=== PATIENT | male | born 1935 | race Caucasian/White ===

== ENCOUNTER → 2016-10-25 | Outpatient (CLI) | payer OTHER | LOC: BMCIMAGING 12:16 | PROVIDERS: ATTEND Family Medicine | DX: M51.36 Other intervertebral disc degeneration, lumbar region (principal); M51.37 Other intervertebral disc degeneration, lumbosacral region; M54.5 Low back pain; M12.9 Arthropathy, unspecified ==

== ENCOUNTER → 2016-11-04 | Outpatient (CLI) | payer OTHER | LOC: FIMAGING 12:30 | PROVIDERS: ATTEND Physician Assistant | DX: M48.56XA Collapsed vertebra, not elsewhere classified, lumbar region, initial encounter for fracture (principal); M48.06 Spinal stenosis, lumbar region; M48.07 Spinal stenosis, lumbosacral region; M43.16 Spondylolisthesis, lumbar region; M12.9 Arthropathy, unspecified; M51.37 Other intervertebral disc degeneration, lumbosacral region; M51.26 Other intervertebral disc displacement, lumbar region; R93.7 Abnormal findings on diagnostic imaging of other parts of musculoskeletal system; I71.4 Abdominal aortic aneurysm, without rupture ==

== ENCOUNTER → 2016-11-15 | Outpatient (CLI) | payer OTHER ==
[~2016-11-15] MED LIST: GADOBUTROL 10 ML VIAL IVP ONE
[2016-11-15 14:35] LABS: CREATININE 1.4 mg/dL (0.7-1.3)
== END ==
LOC: FIMAGING 13:51
PROVIDERS: ATTEND Physical Medicine & Rehabilitation
DX: S32.030A Wedge compression fracture of third lumbar vertebra, initial encounter for closed fracture (principal); R60.9 Edema, unspecified; S32.040D Wedge compression fracture of fourth lumbar vertebra, subsequent encounter for fracture with routine healing; M54.5 Low back pain; M48.06 Spinal stenosis, lumbar region; M51.36 Other intervertebral disc degeneration, lumbar region; M12.9 Arthropathy, unspecified
CPT/HCPCS: 72158; A9585

== ENCOUNTER → 2016-12-14 | Outpatient (CLI) | payer OTHER, MEDICARE | LOC: BMCIMAGING 09:51 | PROVIDERS: ATTEND Physician Assistant | DX: Z13.820 Encounter for screening for osteoporosis (principal); M85.80 Other specified disorders of bone density and structure, unspecified site; M81.0 Age-related osteoporosis without current pathological fracture ==

== ENCOUNTER → 2016-12-31 | Outpatient (CLI) | payer OTHER, MEDICARE | LOC: FIMAGING 11:35 | PROVIDERS: ATTEND Physical Medicine & Rehabilitation | DX: M89.9 Disorder of bone, unspecified (principal) | CPT/HCPCS: 78300; A9503 ==

== ENCOUNTER → 2017-01-24 | Outpatient (CLI) | payer OTHER | LOC: BHFA 14:45 | PROVIDERS: ATTEND Internal Medicine Cardiovascular Disease | DX: I35.9 Nonrheumatic aortic valve disorder, unspecified (principal); R55 Syncope and collapse ==

== ENCOUNTER → 2017-01-29 | Outpatient (CLI) | payer OTHER | LOC: BHFA 10:00 | PROVIDERS: ATTEND Internal Medicine Interventional Cardiology | DX: I48.91 Unspecified atrial fibrillation (principal); J44.9 Chronic obstructive pulmonary disease, unspecified; I25.10 Atherosclerotic heart disease of native coronary artery without angina pectoris ==

== ENCOUNTER → 2017-02-13 | Outpatient (CLI) | payer OTHER | LOC: BHFA 10:00 | PROVIDERS: ATTEND Internal Medicine Cardiovascular Disease | DX: R06.02 Shortness of breath (principal) ==

== ENCOUNTER → 2017-02-14 | Outpatient (CLI) | payer OTHER | LOC: FIMAGING 15:32 | PROVIDERS: ATTEND Internal Medicine Interventional Cardiology | DX: J84.9 Interstitial pulmonary disease, unspecified (principal); I51.7 Cardiomegaly; I48.91 Unspecified atrial fibrillation; Z95.4 Presence of other heart-valve replacement ==

== ENCOUNTER 2017-02-18 08:34 | Day surgery (SDC) | payer OTHER ==
[2017-02-18] MEDS ORDERED: FAMOTIDINE 20 MG TAB PO ONE (08:38)
[2017-02-18] MEDS ORDERED: DIAZEPAM 5 MG TAB PO ONE (08:38)
[2017-02-18] MEDS ORDERED: ASPIRIN EC 325 MG TAB PO ONE ×2 (08:38→09:11)
[2017-02-18] MEDS ORDERED: NS 1,000 ML IV ONE (08:38)
[2017-02-18] MEDS ORDERED: diphenhydrAMINE 25 MG CAP PO ONE ×2 (08:38→09:11)
[2017-02-18] MEDS ORDERED: FAMOTIDINE 20 MG TAB ONE (09:11)
[2017-02-18] MEDS ORDERED: DIAZEPAM 5 MG TAB ONE (09:12)
--- NOTE | 2017-02-18 09:13 | CPEKG ---
Heart Rate: 60 RR Interval: 1000 P-R Interval: 276 QRSD Interval: 122 QT Interval: 480 QTC Interval: 480 P [place]: 61 QRS [place]: -19 T Wave [place]: 11 EKG Severity - ABNORMAL ECG - EKG Impression: SINUS RHYTHM EKG Impression: FIRST DEGREE AV BLOCK EKG Impression: NONSPECIFIC INTRAVENTRICULAR CONDUCTION DELAY Electronically Signed By: Gary Diop 18-Feb-2017 17:36:50
[2017-02-18 09:25] LABS: % IMMATURE GRANULYOCYTES 0.2 % (0.0-1.1); ABSOLUTE IMMATURE GRANULOCYTES 0.01 10^3/uL (0.00-0.10); ADD DIFF? NO; ADD MORPH? NO; ADD SCAN? NO; ATYPICAL LYMPHOCYTE FLAG 10 (0-99); FRAGMENT RBC FLAG 0 (0-99); HEMATOCRIT 42.9 % (40.0-51.0); HEMOGLOBIN 14.5 g/dL (13.7-17.5); LEFT SHIFT FLG 0 (0-99); LIPEMIA HEMOLYSIS FLAG 90 (0-99); MEAN CELL HEMOGLOBIN 32.1 pg (27.9-34.1); MEAN CELL HEMOGLOBIN CONCENTR. 33.8 g/dL (32.4-36.7); MEAN CELL VOLUME 94.9 fL (81.5-99.8); MEAN PLATELET VOLUME 9.9 fL (8.7-11.7); PLATELET CLUMPS FLAG 0 (0-99); PLATELET COUNT 198 10^3/uL (150-400); RED BLOOD CELL COUNT 4.52 10^6/uL (4.40-6.38)
[2017-02-18 09:35] LABS: INR 1.1 (0.83-1.16); PROTIME(PATIENT) 14.1 SEC (12.0-15.0)
[2017-02-18 09:39] LABS: ANION GAP 11 mEq/L (8-16); CALCIUM 9.5 mg/dL (8.5-10.4); CARBON DIOXIDE 22 mEq/l (22-31); CHLORIDE 105 mEq/L (97-110); CHOLESTEROL 125 mg/dL (140-220); CHOLESTEROL/HDL RATIO 2.31 RATIO (1.00-4.97); CREATININE 1.2 mg/dL (0.7-1.3); GLOMERULAR FILTRATION RATE 58; GLUCOSE 94 mg/dL (70-100); HIGH DENSITY LIPOPROTEIN 54 mg/dL (40-65); LDL/HDL RATIO 1.15 RATIO (1.00-3.64); LOW DENSITY LIPOPROTEIN 62 mg/dL (80-100); MAGNESIUM 1.8 mg/dL (1.6-2.3); NON-HIGH DENSITY LIPOPROTEIN 71 mg/dL (90-129); POTASSIUM 4.6 mEq/L (3.5-5.2); SODIUM 138 mEq/L (134-144); TRIGLYCERIDE 49 mg/dL (40-150); VERY LOW DENSITY LIPOPROTEINS 9 mg/dL (8-25)
[2017-02-18] MEDS ORDERED: LIDOCAINE 1% 300 MG/30 ML SDV ONE (10:29)
[2017-02-18] MEDS ORDERED: fentaNYL 100 MCG/2 ML INJ ONE (10:29)
[2017-02-18] MEDS ORDERED: MIDAZOLAM 2 MG/2 ML VIAL ONE (10:29)
[2017-02-18] MEDS ORDERED: VERAPAMIL 5 MG/2 ML VIAL ONE (10:30)
[2017-02-18] MEDS ORDERED: HEPARIN 10,000 UNIT/10 ML MDV ONE (10:30)
[2017-02-18] MEDS ORDERED: IOPAMIDOL (ISOVUE-370) 150 ML BTL IV ONE (10:30)
[2017-02-18] MEDS ORDERED: ATROPINE SULFATE 1 MG/10 ML SYR IVP PRN (11:14)
[2017-02-18] MEDS ORDERED: NITROGLYCERIN 0.4 MG BTL SL PRN (11:14)
== END 2017-02-18 16:00 | disposition home or self-care (01) ==
LOC: FCATH 08:34
PROVIDERS: ATTEND Internal Medicine Interventional Cardiology
PROC: B2111ZZ Fluoroscopy of Multiple Coronary Arteries using Low Osmolar Contrast (ICD-10-PCS; principal; 2017-02-18)
DX: R07.9 Chest pain, unspecified (principal); R06.09 Other forms of dyspnea; R53.83 Other fatigue; I25.10 Atherosclerotic heart disease of native coronary artery without angina pectoris; E78.5 Hyperlipidemia, unspecified; I48.91 Unspecified atrial fibrillation; G89.4 Chronic pain syndrome; J98.4 Other disorders of lung; I44.0 Atrioventricular block, first degree; Z95.2 Presence of prosthetic heart valve; Z95.5 Presence of coronary angioplasty implant and graft
CPT/HCPCS: 93005; 93454; C1769; J1644; J2250; J3010; Q9967

== ENCOUNTER → 2017-03-28 | Outpatient (CLI) | payer OTHER | LOC: BHFA 09:30 | PROVIDERS: ATTEND Internal Medicine Interventional Cardiology | DX: J45.909 Unspecified asthma, uncomplicated (principal) ==

== ENCOUNTER 2017-04-25 05:48 | Day surgery (SDC) | payer OTHER, MEDICARE ==
[2017-04-25] MEDS ORDERED: CLINDAMYCIN 900 MG/DEXTROSE 50 ML IV ONE (06:06)
[2017-04-25] MEDS ORDERED: LR 1,000 ML IV ONE (06:17)
[2017-04-25] MEDS ORDERED: LIDOCAINE 1% 2 ML INJ ID PRN (06:17)
[2017-04-25] MEDS ORDERED: BUPIVACAINE 0.5% 30 ML SDV ONE (06:40)
[2017-04-25] MEDS ORDERED: LIDOCAINE 2% 100 MG/5 ML SYR ONE (07:02)
[2017-04-25] MEDS ORDERED: ROCURONIUM 50 MG/5 ML VIAL ONE (07:02)
[2017-04-25] MEDS ORDERED: fentaNYL 100 MCG/2 ML INJ ONE ×2 (07:02)
[2017-04-25] MEDS ORDERED: PROPOFOL 200 MG/20 ML VIAL ONE (07:03)
--- NOTE | 2017-04-25 07:08 | PDHPUP ---
History & Physical Update H&P update statement: This history and physical update is based on an assessment of the patient which was completed after admission or registration (within 24 hours), but prior to the surgery/procedure. H&P update: H&P reviewed & patient examined, no change in patient's condition since H&P completed
[2017-04-25] MEDS ORDERED: MIDAZOLAM 2 MG/2 ML VIAL ONE (07:13)
[2017-04-25] MEDS ORDERED: MIDAZOLAM 2 MG/2 ML VIAL IVP ONE (07:14)
--- NOTE | 2017-04-25 07:16 | PDANEPAE ---
ANE History of Present Illness umbilical hernia ANE Past Medical History - Cardiovascular History Hx Hypertension: No Hx Arrhythmias: Yes Hx Chest Pain: No Hx Coronary Artery / Peripheral Vascular Disease: Yes Hx CHF / Valvular Disease: Yes Cardiovascular History Comment: AORTIC STENOSIS. AORTIC VALVE REPLACEMENT. ATRIAL FIB. HYPERLIPIDEMIA - Pulmonary History Hx COPD: No Hx Asthma/Reactive Airway Disease: No Hx Recent Upper Respiratory Infection: No Hx Oxygen in Use at Home: No Hx Sleep Apnea: No Sleep Apnea Screening Result - Last Documented: Positive Pulmonary History Comment: PFTS SHOWED MILD COPD - Neurologic History Hx Cerebrovascular Accident: No Hx Seizures: No Hx Dementia: No - Endocrine History Hx Diabetes: Yes Endocrine History Comment: LEVOTHYROXINE - Renal History Hx Renal Disorders: No Renal History Comment: KIDNEY STONE - Liver History Hx Hepatic Disorders: No - Neurological & Psychiatric Hx Hx Neurological and Psychiatric Disorders: No - Cancer History Hx Cancer: No - Congenital Disorder History Hx Congenital Disorders: No - GI History Hx Gastrointestinal Disorders: No - Other Health History Other Health History: CHRONIC PAIN PT. CONSTIPATION - Chronic Pain History Chronic Pain: Yes (MULTI JOINT PAIN) - Surgical History Prior Surgeries: AORTIC VALVE REPLACEMENT. CORONARY ARTERY STENT PLACEMENT. SHOULDER REPLACEMENT GUI X5. KNEE REPLACEMENTS X3. CARDIOVERSIONS ANE Review of Systems - Exercise capacity METS (RN): 5 METS ANE Patient History - Allergies Allergies/Adverse Reactions: Penicillins Allergy (Severe, Verified 04/24/16 22:18) Anaphylaxis - Home Medications Home Medications: Celebrex 04/24/16 [Last Taken 04/24/17 22:00] Cozaar 04/24/16 [Last Taken 04/24/17 05:00] Levothyroxine 04/24/16 [Last Taken 04/25/17 05:00] Lipitor 04/24/16 [Last Taken 04/24/17 10:00] Amiodarone HCl 02/18/17 [Last Taken 04/24/17 22:00] Bactrim DS 02/18/17 [Last Taken 04/24/17 22:00] - NPO status NPO Since - Liquids (Date): 04/24/17 NPO Since - Liquids (Time): 22:00 NPO Since - Solids (Date): 04/24/17 NPO Since - Solids (Time): 18:00 - Smoking Hx Smoking Status: Never smoked - Family Anes Hx Family Hx Anesthesia Complications: NEG ANE Labs/Vital Signs - Vital Signs Blood Pressure: 154/82 Heart Rate: 79 Respiratory Rate: 16 O2 Sat (%): 94 Height: 193.04 cm Weight: 100.698 kg ANE Physical Exam - Airway Neck exam: FROM Mallampati Score: Class 1 Mouth exam: normal dental/mouth exam - Pulmonary Pulmonary: no respiratory distress - Cardiovascular Cardiovascular: regular rate and rhythym - ASA Status ASA Status: III ANE Anesthesia Plan Anesthesia Plan: general endotracheal anesthesia
[2017-04-25] MEDS ORDERED: PHENYLEPHRINE HCL 100 MCG/ML SYR ONE (07:43)
[2017-04-25] MEDS ORDERED: ONDANSETRON 4 MG/2 ML VIAL ONE (07:43)
[2017-04-25] MEDS ORDERED: DEXAMETHASONE 4 MG/ML VIAL ONE (07:43)
[2017-04-25] MEDS ORDERED: PROMETHAZINE HCL 25 MG/ML INJ IVP PRN (07:52)
[2017-04-25] MEDS ORDERED: ONDANSETRON 4 MG/2 ML VIAL IVP PRN (07:52)
[2017-04-25] MEDS ORDERED: fentaNYL 100 MCG/2 ML INJ IVP PRN (07:52)
[2017-04-25] MEDS ORDERED: NALOXONE HCL 0.4 MG/ML INJ IVP PRN (07:52)
[2017-04-25] MEDS ORDERED: HYDROmorphONE/DILAUDID 1 MG/ML SYR IVP PRN (07:52)
[2017-04-25] MEDS ORDERED: HYDROCODONE/APAP 5/325 TAB PO PRN (08:26)
--- NOTE | 2017-04-25 08:28 | POSTOPPROG ---
Post Op Note Date of Operation: 04/25/17 Surgeon: Chace Draper Dance Director: Marichuy Robles PA-C Anesthesiologist: Calista Anesthesia: GET(General Endotracheal) Pre-op Diagnosis: umbilical hernia Post-op Diagnosis: same Indication: enlarging umbilical hernia Procedure: open umbilical hernia repair with mesh Findings: umbilical hernia Inf/Abcess present in the surg proc area at time of surgery?: No Depth: Deep Incisional (Fascial) EBL: Minimal Specimen(s): hernia sac
--- NOTE | 2017-04-25 08:33 | POSTANESTH ---
Post Anesthetic Evaluation Cardiovascular Status: Normal, Stable Respiratory Status: Normal, Stable Level of Consciousness/Mental Status: Can Participate in Eval, Mildly Sleepy, Arousable Pain Control: Adequate, Prn Tx Ordered Nausea/Vomiting Control: Adequate, Prn Tx Ordered Complications Possibly Related to Anesthesia: None Noted
[2017-04-25 09:43] VITALS: PULSE 67
[2017-04-25 11:27] VITALS: BP 126/69; RESP 16
[2017-04-25 15:24] VITALS: TEMP 97.5; O2SAT 91
== END 2017-04-25 11:15 | disposition home or self-care (01) ==
LOC: FSGY 05:48 → EEVIPCON 07:15 → FSGY 11:15
PROVIDERS: ATTEND Surgery
PROC: 0WUF0JZ Supplement Abdominal Wall with Synthetic Substitute, Open Approach (ICD-10-PCS; principal; 2017-04-25 07:15)
DX: K42.9 Umbilical hernia without obstruction or gangrene (principal); I48.91 Unspecified atrial fibrillation; I25.10 Atherosclerotic heart disease of native coronary artery without angina pectoris; G89.4 Chronic pain syndrome; Z95.5 Presence of coronary angioplasty implant and graft; Z95.2 Presence of prosthetic heart valve
CPT/HCPCS: C1781; J1100; J2001; J2250; J2370; J2405; J2704; J3010

== ENCOUNTER 2017-08-01 11:56 | Observation (INO) | payer OTHER, MEDICARE ==
[2017-08-01] MEDS ORDERED: PHENYLEPHRINE HCL 100 MCG/ML SYR ONE (12:23)
--- NOTE | 2017-08-01 12:32 | EDPHY ---
H & P Stated Complaint: Priapism Time Seen by Provider: 08/01/17 12:00 HPI/ROS: CHIEF COMPLAINT: Priapism HISTORY OF PRESENT ILLNESS: The patient is a 81-year-old male presents the ED with 4 days of priapism following an injectable medication for erectile dysfunction. The patient reportedly was seen at the clinic yesterday who performed the injection. He reportedly had a corporal aspiration and 10 injections phenylephrine without improvement. He was advised to go to the hospital in [place] for evaluation and likely dorsal shunt procedure. The patient decided he did not want to seek emergency evaluation last night and instead went home. He presents to the ED today complaining of an ongoing erection and difficulty urinating. REVIEW OF SYSTEMS: A comprehensive 10 point review of systems is otherwise negative aside from elements mentioned in the history of present illness. Source: Patient Exam Limitations: No limitations - Personal History Current Tetanus Diphtheria and Acellular Pertussis (TDAP): Yes - Medical/Surgical History Hx Asthma: No Hx Chronic Respiratory Disease: No Hx Diabetes: Yes Hx Cardiac Disease: Yes Hx Renal Disease: No Hx Cirrhosis: No Hx Alcoholism: No Hx HIV/AIDS: No Hx Splenectomy or Spleen Trauma: No Other PMH: GUI TKA, TSA X 5, aortic valve, stent, appy-1963.HTN, Afib, hypothyroid, BPH. - Social History Smoking Status: Never smoked - Physical Exam Exam: General Appearance: Alert, no distress Eyes: Pupils equal and round no pallor or injection ENT, Mouth: Mucous membranes moist Respiratory: There are no retractions, lungs are clear to auscultation Cardiovascular: Regular rate and rhythm Gastrointestinal: Abdomen is soft and nontender, no masses, bowel sounds normal Genitourinary: Priapism noted, ecchymotic changes noted throughout the penis and scrotum Neurological: A&O, normal motor function, normal sensory exam, normal cranial nerves Skin: Warm and dry, no rashes Musculoskeletal: Neck is supple nontender Extremities: symmetrical, full range of motion Constitutional: Initial Vital Signs Temperature (C) 36.7 C 08/01/17 12:00 Heart Rate 82 08/01/17 12:00 Respiratory Rate 18 08/01/17 12:00 Blood Pressure 111/96 H 08/01/17 12:00 O2 Sat (%) 97 08/01/17 12:00 O2 Delivery Mode Room Air Allergies/Adverse Reactions: Penicillins Allergy (Severe, Verified 08/01/17 12:00) Anaphylaxis Home Medications: Medication Instructions Recorded Celebrex 04/24/16 Cozaar 04/24/16 Levothyroxine 04/24/16 Lipitor 04/24/16 Medical Decision Making ED Course/Re-evaluation: I attempted a corporal aspiration without success. Given the duration of his symptoms and failure of medical therapy, I discussed the case with Dr. Sanders. The patient has had a four-day history of priapism. At this point time surgical intervention is indicated. The patient will be taken to the operating room this afternoon. The patient had an IV established. He received a L of normal saline. He received IV fentanyl. The patient was able to void approximately 200 mL in the ED. The patient was kept npo in the ED. The patient was transferred to the preoperative area at 2:45 p.m. Differential Diagnosis: Differential diagnosis considered includes acute urinary retention, priapism - Data Points Laboratory Results: Laboratory Results 08/01/17 12:40 08/01/17 12:40 08/01/17 08/01/17 12:40 12:40 WBC 13.35 10^3/uL H 10^3/uL (3.80-9.50) RBC 5.10 10^6/uL 10^6/uL (4.40-6.38) Hgb 15.4 g/dL g/dL (13.7-17.5) Hct 43.7 % % (40.0-51.0) MCV 85.7 fL fL (81.5-99.8) MCH 30.2 pg pg (27.9-34.1) MCHC 35.2 g/dL g/dL (32.4-36.7) RDW 17.1 % H % (11.5-15.2) Plt Count 202 10^3/uL 10^3/uL (150-400) MPV 10.2 fL fL (8.7-11.7) Neut % (Auto) 82.8 % H % (39.3-74.2) Lymph % (Auto) 5.8 % L % (15.0-45.0) [place] % (Auto) 8.5 % % (4.5-13.0) Eos % (Auto) 2.0 % % (0.6-7.6) Baso % (Auto) 0.4 % % (0.3-1.7) Nucleat RBC Rel Count 0.0 % % (0.0-0.2) Absolute Neuts (auto) 11.05 10^3/uL H 10^3/uL (1.70-6.50) Absolute Lymphs (auto) 0.77 10^3/uL L 10^3/uL (1.00-3.00) Absolute Monos (auto) 1.13 10^3/uL H 10^3/uL (0.30-0.80) Absolute Eos (auto) 0.27 10^3/uL 10^3/uL (0.03-0.40) Absolute Basos (auto) 0.06 10^3/uL 10^3/uL (0.02-0.10) Absolute Nucleated RBC 0.00 10^3/uL 10^3/uL (0-0.01) Immature Gran % 0.5 % % (0.0-1.1) Immature Gran # 0.07 10^3/uL 10^3/uL (0.00-0.10) Sodium 138 mEq/L mEq/L (134-144) Potassium 4.7 mEq/L mEq/L (3.5-5.2) Chloride 102 mEq/L mEq/L (97-110) Carbon Dioxide 20 mEq/l L mEq/l (22-31) Anion Gap 16 mEq/L mEq/L (8-16) BUN 32 mg/dL H mg/dL (7-23) Creatinine 1.7 mg/dL H mg/dL (0.7-1.3) Estimated GFR 39 Glucose 104 mg/dL H mg/dL (70-100) Calcium 9.2 mg/dL mg/dL (8.5-10.4) Medications Given: Discontinued Medications Fentanyl (Sublimaze) 100 mcg IVP EDNOW ONE Stop: 08/01/17 13:34 Last Admin: 08/01/17 13:53 Dose: 100 mcg Sodium Chloride (Ns) 1,000 mls @ 0 mls/hr IV EDNOW ONE; Wide Open PRN Reason: Protocol Stop: 08/01/17 12:59 Last Admin: 08/01/17 13:07 Dose: 1,000 mls Lactated Ringer's (Lr) 1,000 mls @ 0 mls/hr IV ONCE ONE PRN Reason: As Directed Stop: 08/01/17 14:27 Last Admin: 08/01/17 14:30 Dose: 1,000 mls Departure - Departure Disposition: To OP Cath/Surgery Clinical Impression: Priapism Condition: Good
[2017-08-01] MEDS ORDERED: NS 1,000 ML IV ONE (12:58)
[2017-08-01 13:16] LABS: % IMMATURE GRANULYOCYTES 0.5 % (0.0-1.1); ABSOLUTE IMMATURE GRANULOCYTES 0.07 10^3/uL (0.00-0.10); ADD DIFF? NO; ADD MORPH? NO; ADD SCAN? NO; ATYPICAL LYMPHOCYTE FLAG 0 (0-99); FRAGMENT RBC FLAG 0 (0-99); HEMATOCRIT 43.7 % (40.0-51.0); HEMOGLOBIN 15.4 g/dL (13.7-17.5); LEFT SHIFT FLG 0 (0-99); LIPEMIA HEMOLYSIS FLAG 90 (0-99); MEAN CELL HEMOGLOBIN 30.2 pg (27.9-34.1); MEAN CELL HEMOGLOBIN CONCENTR. 35.2 g/dL (32.4-36.7); MEAN CELL VOLUME 85.7 fL (81.5-99.8); MEAN PLATELET VOLUME 10.2 fL (8.7-11.7); PLATELET CLUMPS FLAG 0 (0-99); PLATELET COUNT 202 10^3/uL (150-400); RED CELL DISTRIBUTION WIDTH 17.1 % (11.5-15.2)
[2017-08-01 13:20] LABS: ANION GAP 16 mEq/L (8-16); CALCIUM 9.2 mg/dL (8.5-10.4); CARBON DIOXIDE 20 mEq/l (22-31); CHLORIDE 102 mEq/L (97-110); CREATININE 1.7 mg/dL (0.7-1.3); GLOMERULAR FILTRATION RATE 39; GLUCOSE 104 mg/dL (70-100); POTASSIUM 4.7 mEq/L (3.5-5.2); SODIUM 138 mEq/L (134-144)
[2017-08-01] MEDS ORDERED: fentaNYL 100 MCG/2 ML INJ IVP ONE ×2 (13:33→16:23)
[2017-08-01] MEDS ORDERED: LR 1,000 ML IV ONE (14:26)
[2017-08-01] MEDS ORDERED: PAPAVERINE HCL 60 MG/2 ML SDV ONE (16:00)
[2017-08-01] MEDS ORDERED: METHYLENE BLUE 0.5% 50 MG/10 ML AMP ONE (16:00)
--- NOTE | 2017-08-01 16:27 | PDANEPAE ---
ANE History of Present Illness 81 year old male w/ priapism presents for shunt placement. ANE Past Medical History - Cardiovascular History Hx Hypertension: No Hx Arrhythmias: Yes Hx Chest Pain: No Hx Coronary Artery / Peripheral Vascular Disease: Yes Hx CHF / Valvular Disease: Yes Cardiovascular History Comment: AORTIC STENOSIS. AORTIC VALVE REPLACEMENT. ATRIAL FIB. HYPERLIPIDEMIA - Pulmonary History Hx COPD: No Hx Asthma/Reactive Airway Disease: No Hx Recent Upper Respiratory Infection: No Hx Oxygen in Use at Home: No Hx Sleep Apnea: No Pulmonary History Comment: PFTS SHOWED MILD COPD - Neurologic History Hx Cerebrovascular Accident: No Hx Seizures: No Hx Dementia: No - Endocrine History Hx Diabetes: Yes Hypothyroid: No Hyperthyroid: No Obesity: no Endocrine History Comment: LEVOTHYROXINE - Renal History Hx Renal Disorders: No Renal History Comment: KIDNEY STONE - Liver History Hx Hepatic Disorders: No - Neurological & Psychiatric Hx Hx Neurological and Psychiatric Disorders: No - Cancer History Hx Cancer: No - Congenital Disorder History Hx Congenital Disorders: No - GI History Hx Gastrointestinal Disorders: No - Other Health History Other Health History: CHRONIC PAIN PT. CONSTIPATION - Chronic Pain History Chronic Pain: Yes (MULTI JOINT PAIN) - Surgical History Prior Surgeries: AORTIC VALVE REPLACEMENT. CORONARY ARTERY STENT PLACEMENT. SHOULDER REPLACEMENT GUI X5. KNEE REPLACEMENTS X3. CARDIOVERSIONS ANE Review of Systems Review of systems is: negative Review of Systems: - Exercise capacity Exercise capacity: <4 METS, >=4 METS ANE Patient History - Allergies Allergies/Adverse Reactions: Penicillins Allergy (Severe, Verified 08/01/17 12:00) Anaphylaxis - Home Medications Home medications: home medication list seen and reviewed Home Medications: Celebrex 04/24/16 [Last Taken 04/24/17 22:00] Cozaar 04/24/16 [Last Taken 04/24/17 05:00] Levothyroxine 04/24/16 [Last Taken 04/25/17 05:00] Lipitor 04/24/16 [Last Taken 04/24/17 10:00] - NPO status NPO Status: no food or drink >8 hours NPO Since - Liquids (Date): 08/01/17 NPO Since - Liquids (Time): 08:00 NPO Since - Solids (Date): 08/01/17 NPO Since - Solids (Time): 08:00 - Anes Hx Anes Hx: no prior problems - Smoking Hx Smoking Status: Never smoked Marijuana use: No - Alcohol Use Alcohol Use: None - Family Anes Hx Family Anes Hx: neg - N/A Family Hx Anesthesia Complications: NEG ANE Labs/Vital Signs - Labs Result Diagrams: 08/01/17 12:40 08/01/17 12:40 - Vital Signs Vital Signs: reviewed preoperatively; see RN documention for details Blood Pressure: 118/52 Heart Rate: 85 Respiratory Rate: 18 O2 Sat (%): 95 Height: 193.04 cm Weight: 92.986 kg ANE Physical Exam - Airway Neck exam: FROM Mallampati Score: Class 1 Mouth exam: dentures - Pulmonary Pulmonary: no respiratory distress - Cardiovascular Cardiovascular: regular rate and rhythym - ASA Status ASA Status: III ANE Anesthesia Plan Anesthesia Plan: GA w LMA Total IV Anesthesia: No
[2017-08-01] MEDS ORDERED: MIDAZOLAM 2 MG/2 ML VIAL ONE (16:34)
[2017-08-01] MEDS ORDERED: MIDAZOLAM 2 MG/2 ML VIAL IVP ONE (16:36)
[2017-08-01] MEDS ORDERED: PROPOFOL/EMULSION 500 MG/50 ML BOTTLE IV ONE ×2 (16:50→17:24)
[2017-08-01] MEDS ORDERED: fentaNYL 100 MCG/2 ML INJ ONE (16:52)
[2017-08-01] MEDS ORDERED: ceFAZolin 2 GM in NS 100 ML IV ONE (16:58)
[2017-08-01] MEDS ORDERED: ceFAZolin 2 GM/SWFI 20 ML SYR IVP ONE (16:58)
--- NOTE | 2017-08-01 17:00 | PDHPUP ---
History & Physical Update H&P update statement: This history and physical update is based on an assessment of the patient which was completed after admission or registration (within 24 hours), but prior to the surgery/procedure. See dictated H and P. To OR for coporal biopsy and distal shunt
[2017-08-01] MEDS ORDERED: BUPIVACAINE 0.5% 30 ML SDV ONE (17:22)
[2017-08-01] MEDS ORDERED: ceFAZolin 2 GM/SWFI 2 GM/20 ML SYR IVP ONE (17:30)
[2017-08-01] MEDS ORDERED: BACITRACIN ZINC 14.2 GM OINTTUBE TP ONE (17:41)
[2017-08-01] MEDS ORDERED: fentaNYL 100 MCG/2 ML INJ IVP PRN (17:52)
[2017-08-01] MEDS ORDERED: NALOXONE HCL 0.4 MG/ML INJ IVP PRN (17:52)
[2017-08-01] MEDS ORDERED: LR 500 ML IV PRN (17:52)
--- NOTE | 2017-08-01 18:08 | POSTOPPROG ---
Post Op Note Date of Operation: 08/01/17 Surgeon: Aubrey Sanders Wax Ball Knock Out Worker: JUAN Pre-op Diagnosis: ischemic priapism Post-op Diagnosis: Same, Corporal fibrosis Procedure: corporal biopsy, distal coporocavernosal shunt Findings: fibrotic corpora Inf/Abcess present in the surg proc area at time of surgery?: No EBL: 50-100 (100ml old blood evacuated) Specimen(s): corporal biopsy
[2017-08-01] MEDS ORDERED: HYDROCODONE/APAP 5/325 TAB ONE (18:57)
[2017-08-01] MEDS: HYDROCODONE/APAP 5/325 TAB PO PRN ×2 (18:58→19:11)
--- NOTE | 2017-08-01 19:47 | GCON ---
[f rep st] CONSULTATION DATE OF CONSULTATION: 08/01/2017 REFERRING PHYSICIAN: Jeffrey Nuñez MD REASON FOR REQUEST: Ischemic priapism. HISTORY OF PRESENT ILLNESS: The patient is an 81-year-old gentleman who has a long history of erecti le dysfunction. He has managed this with corporal cavernosal injections through a clinic in [place]. He injected himself on Saturday morning 4 days prior to this admission and had an erection that would not go away. He sought treatment for this at the clinic yesterday where he reportedly had aspiration and phenylephrine irrigation without success. He was advised at that time to report directly to the emergency room but did not do so and instead decided to come today. The patient reports that he has had ongoing penile pain as well as some difficulty with urination. He is able to urinate, but he fe els like this is a struggle due to the pain. PAST MEDICAL HISTORY: Aortic valve dysfunction, coronary artery disease, atrial fibrillation, low th yroid, kidney stones, and hypertension. PAST SURGICAL HISTORY: Knee surgery. He had multiple orthopedic surgeries. Aortic valve replacemen t with a nonmechanical valve. Appendectomy. Maze procedure. MEDICATIONS: His home medications were reviewed and summarized in the chart. 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 No tobacco, alcohol, or drug abuse. REVIEW OF SYSTEMS: Otherwise negative. LABORATORY DATA: Laboratory values were reviewed and summarized on the chart. PHYSICAL EXAMINATION: VITAL SIGNS: The patient is afebrile with stable vital signs. GENERAL: He is alert and oriented x4 in some distress due to penile pain. HEAD: Normocephalic, atraumatic. EYES, EARS, NOSE, and THROAT: Within normal limits. LUNGS: He has no increased respiratory effort. ABDOMEN: Soft, protuberant, nontender, nondistended. He has a vertical paramedian scar. GENITAL: Firm corporal cavernosa with soft spongy tissue. Normal bilateral descended testes. He mccann s significant ecchymosis and swelling. EXTREMITY: No clubbing, cyanosis, or edema. IMAGING STUDIES: None pertinent. IMPRESSION: Ischemic priapism for approximately 4 days. PLAN: I had an extensive discussion with the patient about the natural history of ischemic priapism at this point in his life when he has significant corporal fibrosis, and it is unclear how salvageabl e any procedure may be. However, given his severe pain, I do recommend an attempt at performing a sh unt and at least irrigating the old blood from the penis. I had an extensive discussion about risks, benefits, and alternatives of this with him. These include but are not limited to pain, bleeding, i nfection, risks of anesthesia, ongoing or recurrent symptoms. Corporal fibrosis is caused by the und erlying condition and inability to achieve an erection is caused by the underlying condition. It is also possible his symptoms could recur. The patient did provide informed consent. Note, the patient reports a penicillin allergy but states he has been able to tolerate Ancef in the p ast without issue. /[id number]/MODL
--- NOTE | 2017-08-01 21:42 | PDCONSULT ---
Pen Tester Note: Pt in Afib w/o RVR. Also with some post op hypoxia. Per anesthesia and cardiology recs I requested hospitalist evaluation for admission. Patient can start anticoagulation at any point from urologic standpoint.
--- NOTE | 2017-08-01 22:07 | POSTANESTH ---
Post Anesthetic Evaluation Cardiovascular Status: Similar to Pre-Op Cond, Other, See Comment (Patient with a history of A. Fib. Patient denies he has had A. Fib since his maze procedure 8 years ago. On arrival to OR and placement on ECG, patient in A. Fib. Family member reports that patient has been on Amiodarone for past several years.) Respiratory Status: Tx Decrease in SpO2 (Patient with SpO2 in mid to high 80s when on room air and left alone in PACU.) Level of Consciousness/Mental Status: Can Participate in Eval, Alert and Oriented Pain Control: Adequate, Prn Tx Ordered Nausea/Vomiting Control: Adequate, Prn Tx Ordered Complications Possibly Related to Anesthesia: None Noted
[2017-08-01] MEDS ORDERED: ONDANSETRON 4 MG/2 ML VIAL IVP PRN (22:15)
[2017-08-01] MEDS ORDERED: ONDANSETRON DISINTEGRATING 4 MG TAB PO PRN (22:15)
[2017-08-01] MEDS ORDERED: ACETAMINOPHEN 325 MG TAB PO PRN (22:15)
[2017-08-01] MEDS ORDERED: NS 1,000 ML IV SCH (22:30)
[2017-08-01] MEDS ORDERED: POLYETHYLENE GLYCOL 3350 17 GM PKT PO PRN (22:39)
[2017-08-01] MEDS ORDERED: MAGNESIUM HYDROXIDE 30 ML UDCUP PO PRN (22:39)
[2017-08-01] MEDS ORDERED: LACTULOSE 20 GM/30 ML UDCUP PO PRN (22:39)
[2017-08-01] MEDS ORDERED: BISACODYL 10 MG SUPP PR PRN (22:39)
[2017-08-01 23:58] LABS: INR 1.26 (0.83-1.16)
--- NOTE | 2017-08-01 23:58 | GHP ---
[f rep st] HISTORY AND PHYSICAL DATE OF ADMISSION: 08/01/2017 CHIEF COMPLAINT: The patient presented with priapism and was noted to have postop atrial fibrillatio n after surgical intervention. HISTORY OF PRESENT ILLNESS: The patient is an 81-year-old male with a history of aortic valve replac ement and atrial fibrillation who is status post maze procedure on amiodarone, presented to the emerg ency department with 4 days of priapism after using injectable medication for erectile dysfunction. Two days prior to arrival to the emergency department, he returned to the clinic where he had the saeid ginal injection and a corporal aspiration was performed followed by multiple phenylephrine injections . Unfortunately, his priapism did not resolve and he presents to our emergency department with ongoi ng priapism, pain, and difficulty urinating. He denies fevers or chills. He denies chest pain or sh ortness of breath. In the emergency department, corporal aspiration was attempted without success. Urology consult was obtained and the patient was taken to the operating room where he underwent corpo ral biopsy and distal corporal cavernosum shunt. Approximately 100 mL of old blood was evacuated. F oley is placed postoperatively, which is draining bloody urine. In the PACU, he was noted to be in a trial fibrillation with a heart rate in the 60s. In addition, he was placed on 1 L of oxygen given h is atrial fibrillation and mild hypoxemia. He is admitted to the hospital for observation and furthe r management. PAST MEDICAL HISTORY: 1. History of erectile dysfunction. 2. Priapism. 3. History of diabetes, which the patient states is resolved. 4. Bovine aortic valve replacement. 5. History of atrial fibrillation status post maze procedure. 6. Hypertension. 7. Hypothyroidism. 8. Benign prostatic hypertrophy. 9. Coronary artery disease with prior LAD stenting. PAST SURGICAL HISTORY: 1. Bilateral TKA. 2. Appendectomy. MEDICATIONS: Please see [facility] for completed outpatient medication list. ALLERGIES: Penicillin. SOCIAL HISTORY: The patient is a retired reinforcing steel worker locally. He is a nonsmoker. FAMILY HISTORY: Reviewed and noncontributory. REVIEW OF SYSTEMS: A 10-point review of systems was performed and is negative except as per History of Present Illness. OBJECTIVE: VITAL SIGNS: Temperature is 36.7, blood pressure 128/81, heart rate 66, respiratory rate 12, he is 97% on 1 L of oxygen by nasal cannula. GENERAL: The patient is awake, alert, oriented, i n no acute distress. HEENT: Head is atraumatic, normocephalic. Pupils equal, round, react to light . Extraocular muscles intact. Oropharynx is clear. Mucous membranes are moist. NECK: Supple. Th ere is no JVD. HEART: Irregularly irregular rhythm with 2/6 systolic ejection murmur. LUNGS: Geremias t bibasilar crackles. Otherwise clear to auscultation. ABDOMEN: Soft, nondistended, nontender with normoactive bowel sounds. EXTREMITIES: Without cyanosis, clubbing, or edema. NEUROLOGIC: Grossly nonfocal. LABORATORY DATA: CBC reveals a white blood cell count of 13.3. Basic metabolic panel is remarkable for CO2 of 20, BUN 32, creatinine 1.7, blood sugar 104. Chest x-ray performed in the PACU, personally reviewed and interpreted. There is mild cardiomegaly, no focal infiltrate, slightly increased interstitial markings, and evidence of prior sternotomy. ASSESSMENT AND PLAN: The patient is an 81-year-old male with a history of aortic valve replacement, atrial fibrillation, and hypertension who is admitted to the hospital after he is noted to have rate controlled atrial fibrillation and mild hypoxemia in the PACU after surgical intervention for 4 days of priapism. 1. Paroxysmal atrial fibrillation. He is status post maze procedure. He states he has been maintai margo on oral amiodarone, though his dosing is unclear. He is currently rate controlled. His CHADS-VA Sc score is 3 based on age and hypertension. I discussed with him his 4% annual stroke risk and ene cation for anticoagulation, which Urology feels comfortable starting in time. However, the patient r efuses anticoagulation and wishes to continue daily aspirin for stroke prevention. Will obtain an EK G and trend his troponin and then check a TSH. An echocardiogram is ordered for the morning. The an esthesiologist consulted with cardiology who is aware of his admission. 2. Mild hypoxemia. He was 88% on room air postoperatively and is currently requiring 1 L/minute. T here may be some anesthesia effect plus opiates as he has received 2 doses of IV fentanyl for pain co ntrol. Will send a BNP. Echocardiogram as above. He does not appear significantly volume overloade d. He also states he recently had outpatient pulmonary function tests which were normal. 3. Priapism. He is status post surgical intervention with evacuation of blood and shunt procedure. A Martinez is in place postoperatively. He will need close Urology followup. 4. Acute kidney injury. His baseline creatinine is around 1.2. His initial creatinine is 1.7. [facility] send the urine sodium and urine creatinine to calculate a fractional excretion of sodium for furthe r evaluation. He may be prerenal given his distressing events leading up to his hospitalization and likely decreased oral intake. Will give him some gentle IV fluid hydration overnight and recheck thi s in the morning. 5. Leukocytosis. Suspect acute stress response. He is afebrile. There is no evidence of infection . Will follow. 6. History of coronary artery disease with prior LAD stenting. He is chest pain free. Recent angio gram in March of 2017, showed a widely patent LAD stent. As above, EKG, troponin, and echocardiogram are planned. 7. History of bovine aortic valve replacement. 8. Questionable history of diabetes. His blood sugar is 104. Will send an A1c. 9. Hypertension. He is normotensive. Will await his medication reconciliation and continue his david e medications. 10. Hyperlipidemia. Continue statin once med rec is completed. 11. Hypothyroidism. Check TSH in the setting of recurrent atrial fibrillation and continue his levo thyroxine once his med rec is completed. 12. Code status: Patient is full code. 13. Deep venous thrombosis prophylaxis. The patient is moderate to high risk, though I do not antic ipate a prolonged hospitalization. Defer pharmacologic prophylaxis tonight given his surgery and rachna ss hematuria. DISPOSITION: . /[id number]/MODL
[2017-08-02 00:03] LABS: TROPONIN I 0.028 ng/mL (0.000-0.034)
[2017-08-02] MEDS: oxyCODONE IR 5 MG TAB PO PRN ×2 (04:13→09:15)
[2017-08-02 04:15] LABS: % IMMATURE GRANULYOCYTES 0.3 % (0.0-1.1); ABSOLUTE IMMATURE GRANULOCYTES 0.04 10^3/uL (0.00-0.10); ADD DIFF? NO; ADD MORPH? NO; ADD SCAN? NO; ATYPICAL LYMPHOCYTE FLAG 0 (0-99); FRAGMENT RBC FLAG 0 (0-99); HEMATOCRIT 40.4 % (40.0-51.0); HEMOGLOBIN 13.6 g/dL (13.7-17.5); LEFT SHIFT FLG 0 (0-99); LIPEMIA HEMOLYSIS FLAG 80 (0-99); MEAN CELL HEMOGLOBIN 29.8 pg (27.9-34.1); MEAN CELL HEMOGLOBIN CONCENTR. 33.7 g/dL (32.4-36.7); MEAN CELL VOLUME 88.4 fL (81.5-99.8); PLATELET CLUMPS FLAG 0 (0-99); PLATELET COUNT 185 10^3/uL (150-400); RED BLOOD CELL COUNT 4.57 10^6/uL (4.40-6.38); RED CELL DISTRIBUTION WIDTH 16.9 % (11.5-15.2)
[2017-08-02 04:25] LABS: ANION GAP 12 mEq/L (8-16); CALCIUM 8.4 mg/dL (8.5-10.4); CARBON DIOXIDE 23 mEq/l (22-31); CHLORIDE 104 mEq/L (97-110); GLOMERULAR FILTRATION RATE > 60; GLUCOSE 85 mg/dL (70-100); POTASSIUM 4.6 mEq/L (3.5-5.2); SODIUM 139 mEq/L (134-144)
[2017-08-02 04:36] LABS: TROPONIN I 0.023 ng/mL (0.000-0.034)
--- NOTE | 2017-08-02 05:04 | GOP ---
[f rep st] OPERATIVE REPORT DATE OF OPERATION: 08/01/2017 SURGEON: Armand Sanders MD TIN DIPPER: None. PREOPERATIVE DIAGNOSIS: Ischemic priapism for 4 days. POSTOPERATIVE DIAGNOSIS: Ischemic priapism for 4 days. PROCEDURE PERFORMED: Corporal biopsy and distal corporal cavernosal shunt. FINDINGS: At this point, it seems evident the patient has significant woody fibrosis of the penis an d, while he still has some firmness, this does not appear to be due to erection as I am able to freel y move the corpora cavernosa. The patient was subsequently reversed from anesthesia no acute distress sent to the recovery room in stable condition. I contacted his with further instruction, and he will remove his catheter in a few days, and follow up as needed. SPECIMENS: Include corporal biopsy. ESTIMATED BLOOD LOSS: 100 mL; mostly of old blood. INDICATIONS: The patient is an 81-year-old gentleman who injected himself with an erectile agent 4 d ays prior to admission. Since that time, he has had ongoing priapism which has continued with worsen ing pain. Prior to the procedure, I had a lengthy discussion of the risks, benefits, and alternative s with him, as detailed in the patient's consultation. DESCRIPTION OF PROCEDURE: After informed consent was obtained, he was taken to the operating room wh ere he was given general anesthesia. He was placed in the supine position with special attention to padding all bony prominences. He was given a test dose of Ancef, which he tolerated without issue. His genitals were prepped and draped in sterile fashion. A Martinez catheter was placed. I passed a Tr u-Cut needle through the glans and into the corporal tissue and attempted to obtain a corporal biopsy . I made multiple attempts at this, and most cases only able to get back to blood; however, with crystal e effort, I was able to get a small piece of tissue which was sent for analysis to assess for ongoing corporal fibrosis. At this point, a 14-gauge angio cath was placed through the corpora spongiosum o f the glans and into the corporal cavernosa to create a shunt. A significant amount of old, dark blo od was evacuated and the penis detumesced. This process was repeated on the opposite side and I proc eeded to milk the corpora, getting out a large volume of what appeared to be old black-appearing bloo d. Once I was satisfied that the penis had detumesced, I placed a 4-0 chromic through the shunt entr ance site on both sides. I watched the area for quite some time and there still appeared to be some fullness. Therefore, I performed a distal corpora cavernosal shunt by inserting an 11 blade through the glans into the corpora, rotating it 90 degrees, and withdrawing. I then once again closed the si te with a chromic suture. 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 At this point, I placed a scrotal support with some gauze, some antibiotic ointment, and he was reversed from anesthesia and sent to recovery room in stable condition. Copy requested to: Primary Care Doctor /[id number]/MODL
[2017-08-02] MEDS ORDERED: ASPIRIN 325 MG TAB PO SCH (09:00)
[2017-08-02] MEDS ORDERED: SENNOSIDES/DOCUSATE SODIUM TAB PO SCH (09:00)
--- NOTE | 2017-08-02 09:52 | PDCARCONS ---
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 EKG showed atrial fibrillation with controlled ventricular rate and I am asked to comment. He has a known history of coronary artery disease post LAD PCI, history of aortic valve replacement, history of persistent atrial fibrillation has been on chronic and anticoagulation in the past, has been on chronic amiodarone for rate and rhythm control. He has been asymptomatic. Last diagnostic angiogram revealed a widely patent LAD stent with diffuse atheroma no focal stenosis, LV function has been preserved. He has no cardiac complaints. He has had normal physical activity levels. Cardiac review of systems is negative for chest pain, shortness of breath, PND , orthopnea, palpitations, syncope, near syncope, edema. Current medications: Medications Generic Name Dose Route Start Last Admin Trade Name Freq PRN Reason Stop Dose Admin Aspirin 325 mg 08/02/17 09:00 08/02/17 08:58 Aspirin PO 01/29/18 08:59 325 mg DAILY [facility] Outpatient medications: Ambulatory Orders Amiodarone HCl [Pacerone (*)] 200 mg PO DAILY 08/02/17 Atorvastatin Calcium [Lipitor 20 mg (*)] 20 mg PO HS 08/02/17 Liothyronine Sodium [Cytomel 25 mcg (*)] 25 mcg PO DAILY 08/02/17 Losartan Potassium [Cozaar 50 mg (*)] 50 mg PO BID 08/02/17 History Information - Allergies/Home Medication List Allergies/Adverse Reactions: Penicillins Allergy (Severe, Verified 08/01/17 17:05) Anaphylaxis Home Medications: Amiodarone HCl [Pacerone (*)] 200 mg PO DAILY 08/02/17 [Last Taken 07/31/17] Anastrozole [Arimidex 1 mg (*)] 0.5 mg PO MOWEFR 08/02/17 [Last Taken 07/31/17] Atorvastatin Calcium [Lipitor 20 mg (*)] 20 mg PO HS 08/02/17 [Last Taken ] Liothyronine Sodium [Cytomel 25 mcg (*)] 25 mcg PO DAILY 08/02/17 [Last Taken ] Losartan Potassium [Cozaar 50 mg (*)] 50 mg PO BID 08/02/17 [Last Taken 08/01/17 ] Mirabegron [Myrbetriq] 50 mg PO DAILY 08/02/17 [Last Taken 08/01/17] Niacin ER [Niaspan 1000 mg (*)] 1,000 mg PO BID 08/02/17 [Last Taken 08/01/17] Sulfamethox/Tmp 800/160 mg [Bactrim Ds] 1 tab PO BID 08/02/17 [Last Taken ] celeCOXIB [Celebrex (*)] 200 mg PO HS 08/02/17 [Last Taken 07/31/17] Past Medical History: - Social History Smoking Status: Never smoked Alcohol Use: None Age in Years: 75 or older Sex: Male Congestive Heart Failure History: No Hypertension History: Yes Stroke/TIA/Thromboembolism History: No Vascular Disease History: Yes Diabetes Mellitus: No [id number] Score: 5\ Physical Exam Physical Exam: Temp Pulse Resp BP Pulse Ox 36.3 C 74 18 135/75 H 96 08/02/17 09:06 08/02/17 09:06 08/02/17 09:06 08/02/17 09:06 08/02/17 09:06 O2 (L/minute) 1 Lab and Imaging 08/02/17 03:46 08/02/17 03:46 WBC 11.50 10^3/uL (3.80-9.50) H 08/02/17 03:46 RBC 4.57 10^6/uL (4.40-6.38) 08/02/17 03:46 Hgb 13.6 g/dL (13.7-17.5) L 08/02/17 03:46 Hct 40.4 % (40.0-51.0) 08/02/17 03:46 MCV 88.4 fL (81.5-99.8) 08/02/17 03:46 MCH 29.8 pg (27.9-34.1) 08/02/17 03:46 MCHC 33.7 g/dL (32.4-36.7) 08/02/17 03:46 RDW 16.9 % (11.5-15.2) H 08/02/17 03:46 Plt Count 185 10^3/uL (150-400) 08/02/17 03:46 MPV 10.0 fL (8.7-11.7) 08/02/17 03:46 Neut % (Auto) 73.6 % (39.3-74.2) 08/02/17 03:46 Lymph % (Auto) 8.4 % (15.0-45.0) L 08/02/17 03:46 [place] % (Auto) 10.2 % (4.5-13.0) 08/02/17 03:46 Eos % (Auto) 6.8 % (0.6-7.6) 08/02/17 03:46 Baso % (Auto) 0.7 % (0.3-1.7) 08/02/17 03:46 Nucleat RBC Rel Count 0.0 % (0.0-0.2) 08/02/17 03:46 Absolute Neuts (auto) 8.46 10^3/uL (1.70-6.50) H 08/02/17 03:46 Absolute Lymphs (auto) 0.97 10^3/uL (1.00-3.00) L 08/02/17 03:46 Absolute Monos (auto) 1.17 10^3/uL (0.30-0.80) H 08/02/17 03:46 Absolute Eos (auto) 0.78 10^3/uL (0.03-0.40) H 08/02/17 03:46 Absolute Basos (auto) 0.08 10^3/uL (0.02-0.10) 08/02/17 03:46 Absolute Nucleated RBC 0.00 10^3/uL (0-0.01) 08/02/17 03:46 Immature Gran % 0.3 % (0.0-1.1) 08/02/17 03:46 Immature Gran # 0.04 10^3/uL (0.00-0.10) 08/02/17 03:46 PT 16.0 SEC (12.0-15.0) H 08/01/17 23:15 INR 1.26 (0.83-1.16) H 08/01/17 23:15 Sodium 139 mEq/L (134-144) 08/02/17 03:46 Potassium 4.6 mEq/L (3.5-5.2) 08/02/17 03:46 Chloride 104 mEq/L (97-110) 08/02/17 03:46 Carbon Dioxide 23 mEq/l (22-31) 08/02/17 03:46 Anion Gap 12 mEq/L (8-16) 08/02/17 03:46 BUN 24 mg/dL (7-23) H 08/02/17 03:46 Creatinine 1.0 mg/dL (0.7-1.3) 08/02/17 03:46 Estimated GFR > 60 08/02/17 03:46 Glucose 85 mg/dL (70-100) 08/02/17 03:46 Calcium 8.4 mg/dL (8.5-10.4) L 08/02/17 03:46 Troponin I 0.023 ng/mL (0.000-0.034) 08/02/17 03:46 NT-Pro-B Natriuret Pep 488 pg/mL (0-450) H 08/01/17 23:15 TSH 1.890 uIU/mL (0.465-4.680) 08/02/17 03:46 Ur Random Creatinine 165.4 mg/dL 08/01/17 23:15 Ur Random Sodium 166 mEq/L (30-90) H 08/01/17 23:15 Laboratory Tests 08/01/17 08/01/17 08/02/17 12:40 23:15 03:46 Creatinine 1.7 H 1.0 Troponin I 0.028 0.023 NT-Pro-B Natriuret Pep 488 H TSH 1.890 EKG additional interpertation: No EKG present on the chart. Telemetry shows atrial fibrillation with controlled ventricular rate. A/P Assessment: Problem list: 1. Atrial fibrillation/persistent on amiodarone. Chads Vasc score of 5. Not currently anticoagulated other than aspirin. 2. History of aortic valve replacement. 3. History of LAD PCI in the setting of coronary artery disease. Impression: Cardiovascular status is stable at this point. He is asymptomatic. He will require long-term anticoagulation. Continue amiodarone for rate and rhythm control. Considerations for cardioversion once current surgical issues have resolved. Resume ARB, aspirin, statin for known coronary artery disease. Will review echocardiogram for aortic valve function. At this point no further cardiac evaluation is required. His troponin is borderline elevated in the setting of a creatinine of 1.7 and does not represent acute coronary syndrome. BNP really is within normal limits. Will await results of echocardiogram and a routine 12 lead EKG. Past Medical History PMH: - Personal History Current Tetanus Diphtheria and Acellular Pertussis (TDAP): Yes - Medical/Surgical History Hx Asthma: No Hx Chronic Respiratory Disease: No Hx Cardiac Disease: Yes Hx Diabetes: Yes Hx Renal Disease: No Hx Alcoholism: No Hx Cirrhosis: No Hx HIV/AIDS: No Hx Splenectomy or Spleen Trauma: No Other PMH: GUI TKA, TSA X 5, aortic valve, stent, appy-1963.HTN, Afib, hypothyroid, BPH. MAZE - Family History Significant Family History: No pertinent family hx - Social History Smoking Status: Never smoked Additional Social History: Review of Systems Review of Systems: - Review of Systems Constitutional: denies: chills, fever Respiratory: no symptoms reported Cardiac: no symptoms reported Gastrointestinal/Abdominal: no symptoms reported Musculoskelatal: no symptoms Skin: no symptoms Neurological: no symptoms
[2017-08-02] MEDS ORDERED: AMIODARONE HCL 200 MG TAB PO SCH (10:00)
--- NOTE | 2017-08-02 10:05 | ECHO ---
[email or web address] [address] Main: [phone] Fax: [email or web address] Echocardiogram Name: FEMI CELIS MR#: [id number] Study Date: 08/02/2017 Study Time: 07:54 AM Date of : 1935 Age: 81 year(s) Height: 193 cm (76 in.) Weight: 92.99 kg (205 lb.) BSA: 2.24 m2 Gender: Male Examination: Echo Indication: Atrial Fibrillation Image Quality: Adequate Contrast: Requested by: Bea Ashton BP: 108 mmHg/50 mmHg Heart Rate: Rhythm: Atrial flutter Indication: Atrial Fibrillation Procedure Staff Product Safety Coordinator: Arabella Milton Physician: Maninder Spann Requesting Provider: Measurements: Chambers Valvular Assessment AV/MV Valvular Assessment TV/PV Normal Normal Normal Name Value Range Name Value Range Name Value Range Ao [place] (MM): 3.8 cm (2.2 cm-3.7 AV meanP mmHg ( - ) TR Vmax: 2.55 mm/s ( - ) cm) LVOT Vmax: 1.15 m/s (0.7 m/s-1.1 TR PGmax: 26 mmHg ( - ) IVSd (2D): 1.7 cm (0.6 cm-1.1 m/s) syst. PAP: 31 mmHg ( - ) cm) AR (PHT): 448 ms ( - ) PV Vmax: 0.84 m/s (0.6 m/s-0.9 LVDd (2D): 5.2 cm (4.2 cm-5.9 MV E Vmax: 0.90 m/s ( - ) m/s) cm) MV A Vmax: 0.33 m/s ( - ) PV PGmax: 3 mmHg ( - ) LVDs (2D): 3.4 cm (2.1 cm-4 MV E/A: 2.73 ( - ) cm) LVPWd (2D): 1.2 cm (0.6 cm-1 cm) LVEF (BP): 56 % (>=55 %) RVDd(2D): 4.4 cm (1.9 cm-3.8 cmmm) Continued Measurements: Chambers Valvular Assessment AV/MV Valvular Assessment TV/PV Name Value Name Value Name Value LADs: 5.4 cm MV DecTime: 165 m/s CVP (est.): 5 mmHg LADs Lon.8 cm MV E/E' Septal: 17.40 LA Area: 30.4 cm2 MV E/E' Lateral: 8.40 LA Volume: 106 ml AR Vmax: 3.91 cm/s LA Volume Index: 47.3 ml/m2 TAPSE: 1.6 cm RA Area: 27.6 cm2 Patient: FEMI CELIS Study Date: 08/02/2017 Page 1 of 2 07:54 AM Additional Vessels Name Value Ao Ascendin.0 cm Findings: Left Ventricle: Normal size left ventricle. Mild to moderate LVH. Normal global systolic LV function. EF is 56 %. Unable to assess diastolic dysfunction. Right Ventricle: Mildly to moderately dilated right ventricle. Mildly reduced RV function. Left Atrium: The left atrium is moderately dilated. Right Atrium: The right atrium is moderately dilated. Mitral Valve: There is mild thickening of the mitral valve leaflets. Mild to moderate mitral regurgitation. No mitral stenosis is present. Aortic Valve: Mean aortic valve gradient 19. The aortic valve is a bioprosthesis. Mild prosthesis regurgitation. Tricuspid Valve: The tricuspid valve appears normal. Mild tricuspid regurgitation is present. Right ventricular systolic pressure measures 31mmHg. Borderline elevated pumonary artery pressure. Pulmonic Valve: The pulmonic valve is normal in appearance and function. Trivial pulmonic valve regurgitation. Aorta: Normal size aortic root measuring 3.8 cm. Mildly dilated ascending aorta measuring 4.0 cm. IVC: The IVC is not well visualized. Pericardium: No pericardial effusion. (No Signature Object) Patient: FEMI CELIS Study Date: 08/02/2017 Page 2 of 2 07:54 AM [id number]
--- NOTE | 2017-08-02 10:51 | HOSPPROG ---
Hospitalist Progress Note Assessment/Plan: 81 yo M w AF, AVR, cad admitted w hypoxemia and AF following emergency priapism surgery priapism: evacuated penis soft remove from pena AF: chronic for him although mostly in sinus clinically in sinus now continue current rx indet trop: has CAD, stable no further workup AHRF: resolved dispo: dc after urination Subjective: case d/w dr carpio Objective: Vital Signs Temp Pulse Resp BP Pulse Ox 36.3 C 74 18 135/75 H 96 08/02/17 09:06 08/02/17 09:06 08/02/17 09:06 08/02/17 09:06 08/02/17 09:06 Laboratory Results 08/02/17 03:46 08/02/17 03:46 08/01/17 08/02/17 08/03/17 05:59 05:59 05:59 Intake Total 823 Output Total 300 Balance 523 PT 16.0 SEC (12.0-15.0) H 08/01/17 23:15 INR 1.26 (0.83-1.16) H 08/01/17 23:15 - Physical Exam Constitutional: no apparent distress, appears nourished Eyes: PERRL, anicteric sclera Ears, Nose, Mouth, Throat: hearing normal Cardiovascular: regular rate and rhythym, no murmur, rub, or gallop Respiratory: no respiratory distress Gastrointestinal: normoactive bowel sounds, soft, non-tender abdomen Genitourinary: no bladder fullness, pena in urethra, other (penis moderately edematous/eccymotic) Skin: warm, normal color, mottled Musculoskeletal: full muscle strength Neurologic: AAOx3 ICD10 Worksheet Patient Problems: Problems Problem Status Onset Priapism Acute Coronary arteriosclerosis Acute History of placement of stent in anterior descending branch of left coronary artery Acute Status post aortic valve replacement Acute
--- NOTE | 2017-08-02 11:10 | CPEKG ---
Heart Rate: 96 RR Interval: 625 QRSD Interval: 126 QT Interval: 408 QTC Interval: 516 QRS [place]: -43 T Wave [place]: 70 EKG Severity - ABNORMAL ECG - EKG Impression: ATRIAL FIBRILLATION EKG Impression: MULTIPLE VENTRICULAR PREMATURE COMPLEXES EKG Impression: NONSPECIFIC IVCD WITH LAD EKG Impression: LEFT VENTRICULAR HYPERTROPHY Electronically Signed By: Tyrese Silver 03-Aug-2017 13:24:16
[2017-08-02] MEDS ORDERED: SULFAMETHOX/TMP 800/160 MG 1 TAB PO SCH (11:15)
[2017-08-02] MEDS ORDERED: ANASTROZOLE 1 MG TAB PO SCH (11:15)
[2017-08-02] MEDS ORDERED: LOSARTAN POTASSIUM 50 MG TAB PO SCH (11:15)
[2017-08-02] MEDS ORDERED: NON-FORMULARY NEW DRUG (Mirabegron [Myrbetriq] 50 MG) PO SCH (11:15)
[2017-08-02] MEDS ORDERED: LIOTHYRONINE SODIUM 25 MCG TAB PO SCH (11:15)
[2017-08-02 12:43] LABS: HEMOGLOBIN A1C 6.1 % (4.0-6.0)
[2017-08-02 15:13] VITALS: BP 127/72; PULSE 74; RESP 17; TEMP 97.6; O2SAT 92
--- NOTE | 2017-08-02 19:37 | GDS ---
[f rep st] DISCHARGE SUMMARY DISCHARGE DIAGNOSES: 1. Acute priapism, status post operative management. 2. Hypoxemic respiratory failure, resolved. 3. Atrial fibrillation, not new, but time limited. Please see admission history and physical by Dr. Bea Ashton. HISTORY OF PRESENT ILLNESS: The patient presented to the hospital with painful erection that had bee n going on for 4 days. He was seen by Urology and taken to the operating room where incision and rem oval of old dark blood was evacuated with detumescence of his penis. A Martinez was placed. I discusse d with Dr. Sanders this morning removing the Martinez. The patient is awaiting to urinate. He is noted to have postoperative atrial fibrillation, which has resolved. The atrial fibrillation is not new f or him. He was also hypoxic which is resolved. He was seen by Cardiology who knows him well. They felt no further workup was indicated. He is discharged home today on an unchanged medication regimen with likely urology followup. /[id number]/MODL
[2017-08-02] MEDS ORDERED: ATORVASTATIN CALCIUM 20 MG TAB PO SCH (21:00)
[2017-08-02] MEDS ORDERED: NIACIN ER 1000 MG TAB.ER PO SCH (21:00)
[2017-08-03] MEDS ORDERED: Mirabegron [Myrbetriq] 50 MG PO SCH (09:00)
== END 2017-08-02 18:04 | disposition home or self-care (01) ==
LOC: FSGY 13:40 → F2W 21:59
PROVIDERS: ADMIT Hospitalist; ATTEND Hospitalist
PROC: 0VB Male Reproductive System, Excision (ICD-10-PCS; principal; 2017-08-01 16:45)
PROC: 0VH Male Reproductive System, Insertion (ICD-10-PCS; principal; 2017-08-01 16:45)
DX: N48.39 Other priapism (principal); J96.91 Respiratory failure, unspecified with hypoxia; I48.91 Unspecified atrial fibrillation; E03.9 Hypothyroidism, unspecified; N40.0 Benign prostatic hyperplasia without lower urinary tract symptoms; I25.10 Atherosclerotic heart disease of native coronary artery without angina pectoris; Z95.2 Presence of prosthetic heart valve
CPT/HCPCS: 54430; 54435; 71010; 93005; 93306; 96361; 96374; 96375; 96376; 97110; 97161; 99285; G0378; G8978; G8979; G8980; J0690; J2250; J2405; J2704; J3010; J2370; J2440; Q9968

== ENCOUNTER 2017-08-06 13:31 | Emergency (ER) | payer OTHER, MEDICARE ==
[2017-08-06 13:41] VITALS: BP 148/109; PULSE 96; RESP 18; TEMP 97.7; O2SAT 94
--- NOTE | 2017-08-06 14:05 | EDPHY ---
H & P Time Seen by Provider: 08/06/17 13:49 HPI/ROS: CHIEF COMPLAINT: Inability to urinate HISTORY OF PRESENT ILLNESS: 81-year-old male presents with inability to urinate. 3 days ago, he presented with priapism after self-injection of an erectile agent. He was taken to the operating room by Dr. Sanders. Sx resolved after hematoma evacuation. Doing well until this morning. Onset of difficulty urinating this morning. No abd fullness, feels that his bladder is empty now. Requesting a suprapubic catheter. REVIEW OF SYSTEMS: Constitutional: No fever, no chills Eyes: No visual changes ENT: No sore throat Respiratory: No cough, no shortness of breath Cardiac: No chest pain Gastrointestinal: No nausea, no vomiting, no abdominal pain Genitourinary: no dysuria Musculoskeletal: No leg pain or swelling Skin: No rash Neurological: No headache, no weakness Psychiatric: No depression Past Medical/Surgical History: Hypertension Atrial fibrillation Priapism Social History: Smoking Status: Never smoked Physical Exam: General Appearance: Alert, pleasant Eyes: Pupils equal and round, no conjunctival pallor or injection ENT, Mouth: Mucous membranes moist Neck: Normal inspection Respiratory: Lungs are clear to auscultation Cardiovascular: Regular rate and rhythm Gastrointestinal: Abdomen is soft and nontender Genitourinary: Ecchymosis in the groin area, penis and scrotum, no tenderness Neurological: A&O, nonfocal, normal gait Skin: Warm and dry Extremities: Nontender, no pedal edema Psychiatric: Mood and affect normal Constitutional: Initial Vital Signs Temperature (C) 36.5 C 08/06/17 13:39 Heart Rate 96 08/06/17 13:39 Respiratory Rate 18 08/06/17 13:39 Blood Pressure 148/109 H 08/06/17 13:39 O2 Sat (%) 94 08/06/17 13:39 O2 Delivery Mode Room Air Allergies/Adverse Reactions: Penicillins Allergy (Severe, Verified 08/06/17 13:38) Anaphylaxis Home Medications: Medication Instructions Recorded Amiodarone HCl [Pacerone (*)] 200 mg PO DAILY 08/02/17 Anastrozole [Arimidex 1 mg (*)] 0.5 mg PO MOWEFR 08/02/17 Atorvastatin Calcium [Lipitor 20 20 mg PO HS 12/01/17 mg (*)] Liothyronine Sodium [Cytomel 25 25 mcg PO DAILY 08/02/17 mcg (*)] Losartan Potassium [Cozaar 50 mg 50 mg PO BID 08/02/17 (*)] Mirabegron [Myrbetriq] 50 mg PO DAILY 08/02/17 Niacin ER [Niaspan 1000 mg (*)] 1,000 mg PO BID 08/02/17 Sulfamethox/Tmp 800/160 mg 1 tab PO BID 08/02/17 [Bactrim DS] celeCOXIB [Celebrex (*)] 200 mg PO HS 08/02/17 Medical Decision Making ED Course/Re-evaluation: Bladder scan: 40 mL of urine present. No evidence of urinary retention. Query UTI, unable to provide urine sample. Dr. Covington called at pt request. 1440: still unable to provide urine sample. Awaiting urology. Unable to contact Urology. No evidence of urinary retention. Urinalysis reveals no evidence of urinary tract infection. Reassured patient that he does not need a catheter today and that he is healing well. He will call Urology to make an appointment. Departure - Departure Disposition: Home, Routine, Self-Care Clinical Impression: Urinary hesitancy Condition: Good Instructions: Urinary Retention in Men (ED) Referrals: Bg Katz MD [Medical Doctor] - As per Instructions Maninder Spann MD [Primary Care Provider] - As per Instructions
[2017-08-06 15:51] LABS: COLOR YELLOW; LEUKOCYTE ESTERASE,URINE NEGATIVE (NEGATIVE); NITRITE,URINE NEGATIVE (NEGATIVE)
[2017-08-06 16:00] LABS: MUCUS 1+ /lpf (NONE-1+); RBC,URINE 50-182 /hpf (0-3)
== END 2017-08-06 15:36 | disposition home or self-care (01) ==
DX: R39.11 Hesitancy of micturition (principal); I10 Essential (primary) hypertension

== ENCOUNTER → 2018-02-13 | Outpatient (CLI) | payer OTHER, MEDICARE | LOC: FIMAGING 14:00 | PROVIDERS: ATTEND Internal Medicine | DX: R51 Headache (principal) ==

== ENCOUNTER → 2018-05-24 | Outpatient (CLI) | payer OTHER, MEDICARE | LOC: FIMAGING 13:57 | PROVIDERS: ATTEND Internal Medicine | DX: H57.11 Ocular pain, right eye (principal); R68.84 Jaw pain ==

== ENCOUNTER → 2018-08-01 | Outpatient (CLI) | payer OTHER, MEDICARE | LOC: FIMAGING 12:44 | PROVIDERS: ATTEND Internal Medicine | DX: R51 Headache (principal); G31.9 Degenerative disease of nervous system, unspecified | CPT/HCPCS: 70553; A9585 ==

== ENCOUNTER → 2018-10-02 | Outpatient (CLI) | payer OTHER, MEDICARE | LOC: BHFA 09:00 | PROVIDERS: ATTEND Internal Medicine Interventional Cardiology | DX: I48.91 Unspecified atrial fibrillation (principal) ==

== ENCOUNTER → 2018-10-08 | Outpatient (CLI) | payer OTHER, MEDICARE | LOC: BHFA 11:00 | PROVIDERS: ATTEND Internal Medicine Interventional Cardiology | DX: I48.91 Unspecified atrial fibrillation (principal) ==

== ENCOUNTER → 2018-10-16 | Outpatient (CLI) | payer OTHER, MEDICARE ==
[~2018-10-16] MED LIST changes: -GADOBUTROL 10 ML VIAL IVP ONE; +IOHEXOL 300 mgI/ML (OMNIPAQUE) 150 ML BTL IV ONE
== END ==
LOC: FIMAGING 11:49
PROVIDERS: ATTEND Internal Medicine Interventional Cardiology
DX: J84.10 Pulmonary fibrosis, unspecified (principal); I25.10 Atherosclerotic heart disease of native coronary artery without angina pectoris; I77.819 Aortic ectasia, unspecified site
CPT/HCPCS: Q9967